=== PATIENT | male | born 1970 | race Native Hawaiian/Other Pacific Islander ===

== ENCOUNTER 2024-12-10 13:27 | Emergency (ER) | payer OTHER ==
[2024-12-10 14:43] LABS: Absolute Lymphocytes (CBC) 2.2 K/uL (0.7-4.9); Hematocrit 29.9 % (39.6-49.0); Hemoglobin 9.9 g/dL (13.6-17.9); MCH 25.7 pg (27.0-35.0); MCHC 33.2 g/dL (32.0-36.0); MCV 77.6 fL (80-100); MPV 8.4 fL (7.6-11.3); Nucleated RBC Absolute Count 0.0 (0-0); Nucleated Red Blood Cells % 0.0 % (0-0); RBC Red Blood Cell Count 3.86 M/uL (4.33-5.43); White Blood Count 7.50 thou/uL (4.3-10.9)
[2024-12-10 14:53] LABS: PT Prothrombin Time 12.4 SECONDS (10-13.0); PTT, Activated Partial Thromb 31.2 SECONDS (27.2-37.4); Protime INR 1.1
[2024-12-10 15:04] LABS: Albumin 2.5 g/dL (3.4-5.0); Albumin/Globulin Ratio 0.5 (1.1-1.8); Alkaline Phosphatase 91 U/L (45-117); Anion Gap 7.5 mEq/L (5.0-15.0); BUN Blood Urea Nitrogen 30 mg/dL (7-18); Globulin 5.3 g/dL (2.3-3.5); Potassium 4.5 mEq/L (3.5-5.1)
[2024-12-10 15:05] LABS: ALT/SGPT < 14 U/L (16-61); AST/SGOT < 10 U/L (15-37)
[2024-12-10 15:06] LABS: Glucose Level 488 mg/dL (74-106)
--- NOTE | 2024-12-10 15:14 | RAD REPORT ---
EXAM: Foot Left 3 View HISTORY: PAIN COMPARISON: None FINDINGS: Bones: No acute fracture identified. Alignment:No significant malalignment. Degenerative changes:Plantar and dorsal aspect calcaneal spur. Degenerative changes are present at th e first MTP joint. Plantar and dorsal aspect calcaneal spurs. Hindfoot degenerative changes. Other: n/a IMPRESSION: No acute osseous abnormality.
[2024-12-10] MEDS ORDERED: HYDROCODONE/APAP 5/325 MG TAB ONE (15:23)
[2024-12-10] MEDS ORDERED: NA CHLORIDE 0.9% 1,000 ML ONE (15:24)
[2024-12-10] MEDS ORDERED: INSULIN REGULAR (HUMAN) 100 UNIT/ML ONE (15:24)
--- NOTE | 2024-12-10 16:28 | EDPHYS ---
Physician Documentation [facility] Name: Hector Pal Age: 54 yrs Sex: Male : 1970 Arrival Date: 12/10/2024 Time: 13:27 Bed 14 Private MD: ED Physician Gabby Pollard HPI: 12/10 16:35 This 54 yrs old Male presents to ER via EMS with complaints of Wound Recheck. kb 16:35 Pt is a 54 year old male who presents for generalized malaise for several weeks. States kb he also has a wound on this foot that has been there for about a year that he is concerned is infected. States he is staying at the [facility] and they won't let him be there during the day so he is having to walk on his foot so it isn't healing. Denies fever. . 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 - Infectious Disease History:: Denies. - Social history:: Smoking status: Patient reports the use of cigarette tobacco products, smokes one-half pack cigarettes per day, Reported history of juuling and/or vaping. ROS: 16:31 Constitutional: As per HPI kb Exam: 16:31 Constitutional: This is a well developed, well nourished patient who is awake, alert, kb and in no acute distress. Head/Face: Normocephalic, atraumatic. ENT: Moist Mucous membranes Cardiovascular: Regular rate Respiratory: Respirations even and unlabored. No increased work of breathing. Talking in full sentences Neuro: Awake and alert, GCS 15, oriented to person, place, time, and situation. 16:31 Musculoskeletal/extremity: right bka. 16:31 Skin: open wound to bottom of left foot without erythema, drainage. Vital Signs: 13:43 BP 178 / 100; Pulse 98; Resp 16; Temp 97.5(O); Pulse Ox 100% on R/A; Weight 74.84 kg; ss Height 5 ft. 10 in. ; Pain 8/10; 14:30 BP 179 / 105; Pulse 95; Resp 18; Pulse Ox 100% ; rg5 15:20 BP 162 / 100; Pulse 93; Resp 18; Pulse Ox 100% ; rg5 16:30 BP 145 / 88; Pulse 89; Resp 18; Pulse Ox 100% ; rg5 13:43 Body Mass Index 23.67 (74.84 kg, 177.8 cm) ss 13:43 Pain Scale: Adult ss MDM: 13:45 Medical Screening Exam initiated kb 16:33 Differential diagnosis: cellulitis, infected wound, osteomyelitis, hyperglycemia, dka. kb Data reviewed: vital signs, nurses notes. Consideration of Admission/Observation Escalation of care including admission/observation considered. admission considered but wbc and lactate wnl, kidney function similar to previous, not in dka, BGL improved after treatment. Pt states he found out he got approved for medical care while here and will establish primary care tomorrow. . Historians other than the Patient: EMS: [facility]. Care significantly affected by the following Social Determinants of Health: Poor access to transportation, Inadequate housing. Counseling: I had a detailed discussion with the patient and/or guardian regarding the historical points, exam findings, and any diagnostic results supporting the discharge/admit diagnosis, lab results, radiology results, the need for outpatient follow up, a family practitioner, to return to the emergency department if symptoms worsen or persist or if there are any questions or concerns that arise at home. 12/10 13:51 Order name: Blood Culture Adult (2) kb 12/10 13:51 Order name: CBC with Diff; Complete Time: 15:00 kb 12/10 13:51 Order name: CMP; Complete Time: 15:07 kb 12/10 13:51 Order name: Lactate w/ 2H reflex if indic.; Complete Time: 15:04 kb 12/10 13:51 Order name: Protime (+inr); Complete Time: 14:53 kb 12/10 13:51 Order name: Ptt, Activated; Complete Time: 14:53 kb 12/10 13:51 Order name: CPK; Complete Time: 15:07 kb 12/10 14:08 Order name: Glucose, Ancillary Testing; Complete Time: 14:09 EDMS 12/10 16:22 Order name: Glucose, Ancillary Testing; Complete Time: 16:24 EDMS 12/10 13:51 Order name: Foot Left 3 View XRAY; Complete Time: 15:18 kb 12/10 13:51 Order name: Accucheck; Complete Time: 14:27 kb 12/10 13:51 Order name: Cardiac monitoring; Complete Time: 14:28 kb 12/10 13:51 Order name: IV Saline Lock - Large Bore; Complete Time: 14:27 kb 12/10 13:51 Order name: Labs collected and sent; Complete Time: 14:27 kb 12/10 13:51 Order name: O2 Per Protocol; Complete Time: 14:27 kb 12/10 13:51 Order name: O2 Sat Monitoring; Complete Time: 14:27 kb 12/10 13:51 Order name: Vital Signs; Complete Time: 14:27 kb 12/10 16:05 Order name: Blood Glucose Level; Complete Time: 16:14 kb Administered Medications: 15:31 Drug: NS 0.9% IV 1000 ml IV at 1000 ml once; to be given as a bolus over 60 minutes rg5 Route: IV; Rate: 1000 ml; Site: right forearm; 16:43 Follow up: IV Status: Completed infusion; IV Intake: 1000ml rg5 15:31 Drug: HYDROcodone-acetaminophen PO 5 mg-325 mg 1 tabs PO once Route: PO; rg5 16:05 Follow up: Response: No adverse reaction; Pain is decreased rg5 15:32 Drug: Insulin Regular Human IVP 10 units IVP once {Co-Signature: af3 (Carmel Robin RN).} rg5 Route: IVP; Site: right forearm; 16:05 Follow up: Response: No adverse reaction rg5 Disposition Summary: 12/10/24 16:27 Discharge Ordered Notes: Location: Home kb Condition: Stable kb Diagnosis - Hyperglycemia, unspecified kb Followup: kb - With: Emergency Department - When: As needed - Reason: Worsening of condition Followup: kb - With: Private Physician - When: 2 - 3 days - Reason: Recheck today's complaints, Continuance of care, Re-evaluation by your physician Discharge Instructions: - Discharge Summary Sheet kb - Hyperglycemia, [id number] kb Forms: - Medication Reconciliation Form kb - Antibiotic Education kb - Prescription Opioid Use kb - Patient Portal Instructions kb - Leadership Thank You Letter kb Signatures: Dispatcher [employer] Fannie Prajapati FNP-C FNP-Lisseth Segovia RN RN Azael Gomez RN RN rg5 Carmel Robin RN af3 Corrections: (The following items were deleted from the chart) 13: 13:52 BLOOD CULTURE*+BA.LAB.BRZ ordered. EDMS EDMS 13: 13:52 CBC+H.LAB.BRZ ordered. EDMS EDMS 13: 13:52 COMPREHENSIVE METABOLIC PANEL+C.LAB.BRZ ordered. EDMS EDMS 13: 13:52 LACTATE+C.LAB.BRZ ordered. EDMS EDMS : 13:52 PROTIME (+INR)+COAG.LAB.BRZ ordered. EDMS EDMS : 13:52 PTT, ACTIVATED+COAG.LAB.BRZ ordered. EDMS EDMS 13: 13:52 CREATINE PHOSPHOKINASE+C.LAB.BRZ ordered. EDMS EDMS 13: 13:52 Foot Left 3 View+RAD.RAD.BRZ ordered. EDMS EDMS
--- NOTE | 2024-12-10 16:28 | ER ---
Nurse's Notes [facility] Name: Hector Pal Age: 54 yrs Sex: Male : 1970 Arrival Date: 12/10/2024 Time: 13:27 Bed 14 Private MD: Diagnosis: Hyperglycemia, unspecified Presentation: 12/10 13:43 Chief complaint: Patient states: fatigue and not feeling well x 3 weeks. Discoloration ss noticed to R stump and L foot x 1 week. Pt reports he is diabetic and hx of HTN, but out of medication x 1 month. Pt states he is homeless, and cannot afford his prescriptions. Coronavirus screen: Client denies travel out of the [place] in the last 14 days. Ebola Screen: Patient denies exposure to infectious person. Patient denies travel to an Ebola-affected area in the 21 days before illness onset. Initial Sepsis Screen: Does the patient meet any 2 criteria? No. Patient's initial sepsis screen is negative. Does the patient have a suspected source of infection? No. Patient's initial sepsis screen is negative. Risk Assessment: Do you want to hurt yourself or someone else? Patient reports no desire to harm self or others. Onset of symptoms is unknown. 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 - Infectious Disease History:: Denies. - Social history:: Smoking status: Patient reports the use of cigarette tobacco products, smokes one-half pack cigarettes per day, Reported history of juuling and/or vaping. Screenin:00 [facility] ED Fall Risk Assessment (Adult) History of falling in the last 3 months, rg5 including since admission No falls in past 3 months (0 pts) Confusion or Disorientation No (0 pts) Intoxicated or Sedated No (0 pts) Impaired Gait Yes (1 pt) Mobility Assist Device Used Yes (1 pt) Altered Elimination No (0 pt) Score/Fall Risk Level 0 - 2 = Low Risk Oriented to surroundings, Maintained a safe environment, Hourly rounding (assess needs \T\ fall precautionary measures) done. Abuse screen: Denies threats or abuse. Nutritional screening: No deficits noted. Tuberculosis screening: No symptoms or risk factors identified. Assessment: 14:00 General: Appears in no apparent distress. comfortable, Behavior is calm, cooperative, rg5 appropriate for age. 14:00 Pain: Complains of pain in all over the body Quality of pain is described as aching. rg5 Neuro: Level of Consciousness is awake, alert, obeys commands, Oriented to person, place, time, situation. Cardiovascular: Denies chest pain. Respiratory: Airway is patent Trachea midline Respiratory effort is even, unlabored. GI: Abdomen is round non-distended. : No signs and/or symptoms were reported regarding the genitourinary system. EENT: No signs and/or symptoms were reported regarding the EENT system. Derm: Skin is intact, Skin is normal, Skin temperature is warm. Musculoskeletal: Amputation of right leg. Circulation, motion, and sensation intact. Range of motion: limited in right leg. 15:06 Reassessment: TAMAR Greco notified of critical lab value. Glucose 488. 15:20 Reassessment: Patient and/or family updated on plan of care and expected duration. Pain rg5 level reassessed. Patient is alert, oriented x 3, equal unlabored respirations, skin warm/dry/pink. 16:04 Reassessment: No changes from previously documented assessment. Patient and/or family rg5 updated on plan of care and expected duration. Pain level reassessed. Patient is alert, oriented x 3, equal unlabored respirations, skin warm/dry/pink. Vital Signs: 13:43 BP 178 / 100; Pulse 98; Resp 16; Temp 97.5(O); Pulse Ox 100% on R/A; Weight 74.84 kg; Height 5 ft. 10 in. ; Pain 8/10; 14:30 BP 179 / 105; Pulse 95; Resp 18; Pulse Ox 100% ; rg5 15:20 BP 162 / 100; Pulse 93; Resp 18; Pulse Ox 100% ; rg5 16:30 BP 145 / 88; Pulse 89; Resp 18; Pulse Ox 100% ; rg5 13:43 Body Mass Index 23.67 (74.84 kg, 177.8 cm) 13:43 Pain Scale: Adult ED Course: 13:43 Patient arrived in ED. ss 13:45 Fannie Jordan [facility]-C [facility] kb 13:45 Gabby Pollard MD is Attending Physician. kb 13:46 Azael Gomez, MIS is Primary Nurse. rg5 13:46 Triage completed. ss 13:46 Arm band placed on right wrist. ss 14:00 Patient has correct armband on for positive identification. Bed in low position. Call rg5 light in reach. Side rails up X 1. Door closed. Noise minimized. Warm blanket given. 14:00 No provider procedures requiring assistance completed. Inserted saline lock: 20 gauge rg5 in right antecubital area, using aseptic technique. Patient maintains SpO2 saturation greater than 95% on room air. 15:04 Foot Left 3 View XRAY In Process Unspecified. EDMS 16:44 Provided Education on: post er care. rg5 16:44 IV discontinued, bleeding controlled, No redness/swelling at site. Pressure dressing rg5 applied. Administered Medications: 15:31 Drug: NS 0.9% IV 1000 ml IV at 1000 ml once; to be given as a bolus over 60 minutes rg5 Route: IV; Rate: 1000 ml; Site: right forearm; 16:43 Follow up: IV Status: Completed infusion; IV Intake: 1000ml rg5 15:31 Drug: HYDROcodone-acetaminophen PO 5 mg-325 mg 1 tabs PO once Route: PO; rg5 16:05 Follow up: Response: No adverse reaction; Pain is decreased rg5 15:32 Drug: Insulin Regular Human IVP 10 units IVP once {Co-Signature: af3 (Carmel Robin RN).} rg5 Route: IVP; Site: right forearm; 16:05 Follow up: Response: No adverse reaction rg5 Medication: 15:06 VIS not applicable for this client. ss Intake: 16:43 IV: 1000ml; Total: 1000ml. rg5 Outcome: 16:27 Discharge ordered by . kb 16:44 Discharged to home ambulatory, rg5 16:44 Condition: stable 16:44 Discharge instructions given to patient, Instructed on discharge instructions, Demonstrated understanding of instructions, 16:45 Patient left the ED. rg5 Signatures: Dispatcher [employer] EDHI Fannie Jordan FNP-C FNP-Ckb Blanchard, Shelby, RN RN ss Azael Gomez, RN RN rg5 Sharda, Carmel RN af3
[2024-12-10 17:40] VITALS: TEMP 97.5; O2SAT 100
[2024-12-10 17:45] VITALS: BP 145/88
== END 2024-12-10 16:45 | disposition home or self-care (01) ==
LOC: ER 13:27
DX: E11.65 Type 2 diabetes mellitus with hyperglycemia (principal); S91.302A Unspecified open wound, left foot, initial encounter; I10 Essential (primary) hypertension; F17.210 Nicotine dependence, cigarettes, uncomplicated; Z89.511 Acquired absence of right leg below knee
CPT/HCPCS: 96361; 87040 ×2; 85025; 36415; 82550; 87205 ×2; 85610; 82947 ×2; 83605; 85730; 80053; 73630; 96374; 99284; J1815; J7030

== ENCOUNTER 2024-12-13 11:32 | Emergency (ER) | payer OTHER ==
--- OUTSIDE RECORDS SUMMARY | 2024-12-13 11:35 | XMS REPORT | Continuity of Care Document ---
Author Name Unknown Address [address] [place] [id number] [facility] Address [address] [place] [address] [address] [place] [address] Care Team Providers Care Loan Officer Name Role Phone Unavailable Unavailable Unavailable Encounters Start Date/Time End Date/Time Encounter Type Admission Type Attending Clinicians Care Facility Care Department Encounter ID Source 2024-12-12 10:25:20 2024-12-12 10:25:20 Outpatient [facility] [id number] Miguel Lyon
[2024-12-13] MEDS ORDERED: LIDOCAINE 1% 20 ML MDV ONE (12:00)
--- NOTE | 2024-12-13 13:04 | EDPHYS ---
Physician Documentation [facility] Name: Hector Pal Age: 54 yrs Sex: Male : 1970 Arrival Date: 12/13/2024 Time: 11:32 Bed 7 Private MD: ED Physician Brendon Perea HPI: 12/13 13:28 This 54 yrs old Male presents to ER via Wheelchair with complaints of Abscess. [facility] 13:28 54-year-old male with a past medical history of hypertension and diabetes presents to [facility] the ER for an abscess to the left glute. He reports that he has had abscesses in the past and that sitting in his wheelchair has caused this abscess to worsen. Reports symptoms for the past 3 days. Denies fever, vomiting, rectal pain, or any other symptoms.. Historical: - Allergies: 13:28 antibiotics; iw 13:28 PENICILLINS; iw - PMHx: 13:28 diabetes mellitus; diabetes mellitus; Hypertensive disorder; iw - PSHx: 13:28 R BKA; Amputated below knee; R shoulder; iw ROS: 13:28 Constitutional: Per HPI [facility] Exam: 13:28 Constitutional: This is a well developed, well nourished patient who is awake, alert, [facility] and in no acute distress. Head/Face: Normocephalic, atraumatic. Eyes: Pupils equal round and reactive to light, extra-ocular motions intact. Lids and lashes normal. Conjunctiva and sclera are non-icteric and not injected. Cornea within normal limits. Periorbital areas with no swelling, redness, or edema. Cardiovascular: Regular rate and rhythm with a normal S1 and S2. No gallops, murmurs, or rubs. Normal PMI, no JVD. No pulse deficits. Respiratory: Lungs have equal breath sounds bilaterally, clear to auscultation and percussion. No rales, rhonchi or wheezes noted. No increased work of breathing, no retractions or nasal flaring. Abdomen/GI: Soft, non-tender, with normal bowel sounds. No distension or tympany. No guarding or rebound. No evidence of tenderness throughout. MS/ Extremity: Pulses equal, no cyanosis. Neurovascular intact. Full, normal range of motion. Neuro: Awake and alert, GCS 15, oriented to person, place, time, and situation. 13:28 Skin: abscess, that is small, approximately 2 cm(s), of the Left glute, with fluctuance, that is mild, with induration, Procedures: 13:10 I \T\ D: Incision and drainage was performed for an abscess of the left sacrum Prepped [facility] with Betadine, Anesthetized with 7 ml's 1% Lidocaine. Incised with #11 blade. Drained small amount purulent fluid. bloody fluid. Packed with sterile gauze, Dressing: sterile 4x4 gauze, the patient tolerated the procedure well. MDM: 11:40 Medical Screening Exam initiated mckenna 13:30 Differential diagnosis: abscess, cellulitis, insect bite. Data reviewed: vital signs, [facility] nurses notes. I considered the following discharge prescriptions or medication management in the emergency department Medications were administered in the Emergency Department. See MAR. Care significantly affected by the following chronic conditions: Diabetes, Hypertension. Care significantly affected by the following Social Determinants of Health: Inadequate housing. Counseling: I had a detailed discussion with the patient and/or guardian regarding the historical points, exam findings, and any diagnostic results supporting the discharge/admit diagnosis, to return to the emergency department if symptoms worsen or persist or if there are any questions or concerns that arise at home. Admission orders: after a detailed discussion of the patient's condition and case, the admit orders are written by me. Admission orders: after a detailed discussion of the patient's condition and case, the admit orders are written by me. ED course: Inform the patient that there was only a very small area of fluctuance with a larger area of induration, meaning that the abscess may continue to drain or need an additional I\T\D. Advised to start antibiotics and return to the ER with any fever or continued swelling.. 12/13 11:57 Order name: Incision \T\ Drainage Setup; Complete Time: 12:05 jh7 12/13 13:02 Order name: Wound dressing; Complete Time: 13:11 7 Administered Medications: No medications were administered Disposition Summary: 12/13/24 13:03 Discharge Ordered Notes: Location: [place] [id number] Problem: new [facility] Symptoms: have improved [facility] Condition: Stable [facility] Diagnosis - Gluteal abscess [facility] Followup: [facility] - With: Private Physician - When: 2 - 3 days - Reason: Recheck today's complaints Discharge Instructions: - Discharge Summary Sheet [facility] - Skin Abscess [facility] Forms: - Medication Reconciliation Form 7 - Antibiotic Education 7 - Patient Portal Instructions [facility] - Leadership Thank You Letter [facility] Prescriptions: - mupirocin 2 % Topical ointment - apply 1 application TOPICAL route 3 times per day for 7 days; 22 gram; Refills: [facility] 0, Product Selection Permitted - Naprosyn 500 mg Oral Tablet - take 1 tablet ORAL route 2 times per day take with food; 30 tablet; Refills: 0, [facility] Product Selection Permitted - Bactrim DS 800-160 mg Oral Tablet - take 1 tablet ORAL route every 12 hours for 10 days; 20 tablet; Refills: 0, [facility] Product Selection Permitted Addendum: 12/18/2024 06:57 Co-signature as Attending Physician, Brendon Perea MD I agree with the assessment and c galindo plan of care. Signatures: Brendon Perea MD MD cha Williams, Irene, RN RN Rosana Cook, PALLETIZER OPERATOR [place] [address]
--- NOTE | 2024-12-13 13:30 | ER ---
Nurse's Notes [facility] Name: Hector Pal Age: 54 yrs Sex: Male : 1970 Arrival Date: 12/13/2024 Time: 11:32 Bed 7 Private MD: Diagnosis: Gluteal abscess Presentation: 12/13 11:47 Chief complaint: Patient states: abscess to buttock area. Coronavirus screen: At this iw time, the client does not indicate any symptoms associated with coronavirus-19. Ebola Screen: No symptoms or risks identified at this time. Initial Sepsis Screen: Does the patient meet any 2 criteria? No. Patient's initial sepsis screen is negative. Does the patient have a suspected source of infection? No. Patient's initial sepsis screen is negative. Risk Assessment: Do you want to hurt yourself or someone else? Patient reports no desire to harm self or others. 11:47 Method Of Arrival: Wheelchair iw 11:47 Acuity: CESAR 4 iw 13:29 Onset of symptoms was December 13, 2024. iw Historical: - Allergies: 13:28 antibiotics; iw 13:28 PENICILLINS; iw - PMHx: 13:28 diabetes mellitus; diabetes mellitus; Hypertensive disorder; iw - PSHx: 13:28 R BKA; Amputated below knee; R shoulder; iw Screenin:28 [facility] ED Fall Risk Assessment (Adult) History of falling in the last 3 months, iw including since admission No falls in past 3 months (0 pts) Confusion or Disorientation No (0 pts) Intoxicated or Sedated No (0 pts) Impaired Gait No (0 pts) Mobility Assist Device Used No (0 pt) Altered Elimination No (0 pt) Score/Fall Risk Level 0 - 2 = Low Risk Oriented to surroundings, Maintained a safe environment. Abuse screen: Denies threats or abuse. Denies injuries from another. Nutritional screening: No deficits noted. Tuberculosis screening: No symptoms or risk factors identified. Assessment: 11:47 General: Appears in no apparent distress. Behavior is calm, cooperative. Pain: iw Complains of pain in buttocks. Neuro: Level of Consciousness is awake, alert, obeys commands, Oriented to person, place, time, situation, Moves all extremities. Cardiovascular: Patient's skin is warm and dry. Respiratory: Respiratory effort is even, unlabored, Respiratory pattern is regular, symmetrical. Derm: Skin is intact. ED Course: 11:35 Patient arrived in ED. al6 11:40 Brendon Perea MD is Attending Physician. mckenna 11:40 Rosana Epps FNP [facility]. jh7 11:58 Faraz Velázquez, RN is Primary Nurse. ar8 13:28 Triage completed. iw 13:29 Arm band placed on. iw Administered Medications: No medications were administered Medication: 11:47 VIS not applicable for this client. iw Outcome: 13:03 Discharge ordered by . 7 13:29 Patient left the ED. iw Signatures: Brendon Perea MD MD cha Williams, Irene, RN RN iw Rosana Epps FNP FNP Heather Alfaro al6 Faraz Velázquez, RN RN ar8
== END 2024-12-13 13:29 | disposition home or self-care (01) ==
LOC: ER 11:32
PROC: 0H98XZZ Drainage of Buttock Skin, External Approach (ICD-10-PCS; principal; 2024-12-13)
DX: L02.31 Cutaneous abscess of buttock (principal)
CPT/HCPCS: 99281; 10060; J2003

== ENCOUNTER 2024-12-30 08:06 | Emergency (ER) | payer OTHER ==
[2024-12-30] MEDS ORDERED: GLUCAGON 1 MG/VIAL ONE (08:37)
[2024-12-30] MEDS ORDERED: WATER FOR INJ,STERILE 0 ML ONE (08:37)
[2024-12-30] MEDS ORDERED: D50W 25 GM/50 ML SYRINGE IV ONE (08:37)
[2024-12-30 08:48] LABS: Absolute Lymphocytes (CBC) 2.1 K/uL (0.7-4.9); Hematocrit 33.4 % (39.6-49.0); Hemoglobin 11.1 g/dL (13.6-17.9); MCH 26.6 pg (27.0-35.0); MCHC 33.2 g/dL (32.0-36.0); MCV 80.1 fL (80-100); MPV 6.9 fL (7.6-11.3); Nucleated RBC Absolute Count 0.0 (0-0); Nucleated Red Blood Cells % 0.0 % (0-0); RBC Red Blood Cell Count 4.17 M/uL (4.33-5.43); White Blood Count 8.20 thou/uL (4.3-10.9)
[2024-12-30 09:02] LABS: Anion Gap 9.0 mEq/L (5.0-15.0); BUN Blood Urea Nitrogen 36.0 mg/dL (7-18); Glucose Level 93.0 mg/dL (74-106); Potassium 4.0 mEq/L (3.5-5.1)
[2024-12-30] MEDS ORDERED: NA CHLORIDE 0.9% 500 ML ONE (09:10)
[2024-12-30] MEDS ORDERED: HYDROCODONE/APAP 10/325 TAB ONE (09:33)
--- NOTE | 2024-12-30 11:54 | ER ---
Nurse's Notes [facility] Name: Hector Pal Age: 54 yrs Sex: Male : 1970 Arrival Date: 12/30/2024 Time: 08:06 Bed 3 Private MD: Diagnosis: Hypoglycemia, unspecified Presentation: 12/30 08:06 Chief complaint: EMS states: Per EMS, [facility] called 911 because patient was ar8 unresponsive. EMS states initial BG was 39 they medicated with Glucagon IM, BG 41 FINANCIAL REPORTING ADVISOR to ED. Patient responsive to verbal stimuli, able to answer questions. 08:06 Method Of Arrival: EMS: [facility] ar8 08:06 Coronavirus screen: At this time, the client does not indicate any symptoms associated ar8 with coronavirus-19. Ebola Screen: No symptoms or risks identified at this time. Initial Sepsis Screen: Does the patient meet any 2 criteria? No. Patient's initial sepsis screen is negative. Does the patient have a suspected source of infection? No. Patient's initial sepsis screen is negative. Risk Assessment: Do you want to hurt yourself or someone else? Patient reports no desire to harm self or others. Onset of symptoms was December 30, 2024. 08:06 Acuity: CESAR 2 ar8 Triage Assessment: 08:10 General: Appears in no apparent distress. Behavior is drowsy. Pain: Denies pain. Neuro: ar8 Level of Consciousness is obeys commands, lethargic, Oriented to person, place, situation. Cardiovascular: Rhythm is sinus rhythm. Respiratory: Airway is patent Respiratory effort is even, unlabored, Respiratory pattern is regular, symmetrical. GI: No signs and/or symptoms were reported involving the gastrointestinal system. : No signs and/or symptoms were reported regarding the genitourinary system. Derm: Skin is clammy, Skin is pale, Skin temperature is cool Wound noted heel of left foot and left fifth toe. Historical: - Allergies: 08:27 antibiotics; ar8 08:27 PENICILLINS; ar8 08:27 unknown antibiotic; ar8 08:27 Vancomycin; ar8 - PMHx: 08:27 diabetes mellitus; Hypertensive disorder; ar8 - PSHx: 08:27 Amputated below knee; R BKA; R shoulder; ar8 - Immunization history:: Adult Immunizations not up to date. - Infectious Disease History:: Denies. - Family history:: not pertinent. - Social history:: Smoking status: Patient reports the use of cigarette tobacco products. - Hospitalizations: : No recent hospitalization is reported. Screenin:10 [facility] Fall Risk Assessment (Adult) History of falling in the last 3 months, ar8 including since admission No falls in past 3 months (0 pts) Confusion or Disorientation Yes (5 pts) Intoxicated or Sedated No (0 pts) Impaired Gait No (0 pts) Mobility Assist Device Used No (0 pt) Altered Elimination No (0 pt) Score/Fall Risk Level 3 or more points = High Risk Oriented to surroundings, Maintained a safe environment. Nutritional screening: No deficits noted. Tuberculosis screening: No symptoms or risk factors identified. 08:10 Abuse screen: Denies threats or abuse. ar8 Assessment: 08:33 Reassessment: See triage assessment. ar8 08:49 Reassessment: Patient and/or family updated on plan of care and expected duration. Pain ar8 level reassessed. Patient is alert, oriented x 3, equal unlabored respirations, skin warm/dry/pink. Patient denies pain at this time. Patient states feeling better. Neuro: Level of Consciousness is awake, alert, obeys commands, Oriented to person, place, time, situation. Vital Signs: 08:06 BP 94 / 73; Pulse 82; Resp 16; Pulse Ox 100% on R/A; Weight 73.94 kg; Height 5 ft. 10 ar8 in. ; Pain 0/10; 09:30 BP 157 / 99; Pulse 75; Resp 18; Pulse Ox 100% on R/A; ar8 10:16 BP 159 / 87; Pulse 81; Resp 16; Pulse Ox 98% on R/A; ar8 11:00 BP 169 / 63; Pulse 81; Resp 19; Pulse Ox 98% on R/A; ar8 12:59 BP 166 / 102; Pulse 85; Resp 19; Pulse Ox 100% on R/A; ap3 14:00 BP 164 / 100; Pulse 90; Resp 18; Pulse Ox 100% on R/A; ar8 08:06 Body Mass Index 23.39 (73.94 kg, 177.8 cm) ar8 08:06 Pain Scale: Adult ar8 ED Course: 08:10 Arm band placed on right wrist. ar8 08:10 Bed in low position. Call light in reach. Side rails up X2. Provided Education on: plan ar8 of care. Client placed on continuous cardiac and pulse oximetry monitoring. NIBP monitoring applied. 08:10 No provider procedures requiring assistance completed. ar8 08:20 Patient arrived in ED. hb 08:20 Joe Davis MD is Attending Physician. rn 08:23 Faraz Velázquez RN is Primary Nurse. ar8 08:26 Triage completed. ar8 08:40 Inserted saline lock: 20 gauge in right upper arm, using aseptic technique. Blood ar8 collected. Flushed with 10 mL NS US guided IV inserted by charge nurse. 08:49 Diet: Patient given juice. Tolerated well. ar8 14:40 IV discontinued, intact, bleeding controlled, No redness/swelling at site. Pressure ar8 dressing applied. Administered Medications: 08:53 Not Given (Physician Discretion): d50w50 ml IVP once; (1 amp) ar8 08:53 Not Given (Physician Discretion): glucagon1 mg IVP once ar8 09:15 Drug: NS 0.9% IV 500 ml 500 ml IV at 1 bolus once; to be given as a bolus over 30 ar8 minutes Volume: 500 ml; Route: IV; Rate: 1 bolus; Site: right upper arm; 09:45 Follow up: Response: No adverse reaction; IV Status: Completed infusion; IV Intake: ar8 500ml 09:44 Drug: [place] PO 10 mg-325 mg 1 tabs PO once Route: PO; ar8 14:54 Follow up: Response: No adverse reaction; Pain is decreased ar8 Medication: 08:33 VIS not applicable for this client. ar8 Point of Care Testing: Blood Glucose: 08:39 Blood Glucose: 82 mg/dL; ar8 11:15 Blood Glucose: 180 mg/dL; ar8 Ranges: Intake: 09:45 IV: 500ml; Total: 500ml. ar8 Outcome: 11:54 Discharge ordered by . rn 14:40 Discharged to home via wheelchair, ar8 14:40 Condition: stable ar8 14:40 Discharge instructions given to patient, Instructed on discharge instructions, follow up and referral plans. Demonstrated understanding of instructions, follow-up care, 14:57 Patient left the ED. ar8 Signatures: Joe Davis MD MD rn Baxter, Heather, RN RN Geeta Conley RN RN ap3 Faraz Velázquez RN RN ar8 Corrections: (The following items were deleted from the chart) 08:35 00:00 [facility] Fall Risk Assessment (Adult) History of falling in the last 3 months, ar8 including since admission No falls in past 3 months (0 pts) Confusion or Disorientation Yes (5 pts) Intoxicated or Sedated No (0 pts) Impaired Gait No (0 pts) Mobility Assist Device Used No (0 pt) Altered Elimination No (0 pt) Score/Fall Risk Level 3 or more points = High Risk Oriented to surroundings, Maintained a safe environment, ar8 08:35 00:00 Abuse screen: Denies threats or abuse. ar8 ar8 :35 00:00 Nutritional screening: No deficits noted. ar8 ar8 :35 00:00 Tuberculosis screening: No symptoms or risk factors identified. ar8 ar8
--- NOTE | 2024-12-30 11:54 | EDPHYS ---
Physician Documentation [facility] Name: Hector Pal Age: 54 yrs Sex: Male : 1970 Arrival Date: 12/30/2024 Time: 08:06 Bed 3 Private MD: ED Physician Joe Davis HPI: 12/30 08:26 This 54 yrs old Male presents to ER via Unassigned with complaints of Low Blood Sugar. rn 08:26 Patient had [facility], they did bed checks this morning and noted he was difficult rn to arouse. They thought he was overdose, EMS reports glucose less than 40, given glucagon IM but no IV started or no other meds as was basic truck. Patient a little bit more alert but still slow to respond. Patient reports chronic pain to the left lower extremity but no new symptoms. Patient reports takes Lantus at night.. Historical: - Allergies: 08:27 antibiotics; ar8 08:27 PENICILLINS; ar8 08:27 unknown antibiotic; ar8 08:27 Vancomycin; ar8 - PMHx: 08:27 diabetes mellitus; Hypertensive disorder; ar8 - PSHx: 08:27 Amputated below knee; R BKA; R shoulder; ar8 - Immunization history:: Adult Immunizations not up to date. - Infectious Disease History:: Denies. - Family history:: not pertinent. - Social history:: Smoking status: Patient reports the use of cigarette tobacco products. - Hospitalizations: : No recent hospitalization is reported. ROS: 08:28 Constitutional: Negative for fever, chills, and weight loss, Cardiovascular: Negative rn for chest pain, palpitations, and edema, Respiratory: Negative for shortness of breath, cough, wheezing, and pleuritic chest pain, Abdomen/GI: Negative for abdominal pain, nausea, vomiting, diarrhea, and constipation, MS/Extremity: Negative for injury and deformity, Skin: Negative for injury, rash, and discoloration, Neuro: Negative for headache, numbness, tingling, and seizure, Exam: 08:28 Constitutional: Patient is disheveled, somnolent, but awakens to voice and tactile rn stimulation Cardiovascular: Regular rate and rhythm. No pulse deficits. Respiratory: No increased work of breathing, no retractions or nasal flaring. Abdomen/GI: Soft, non-tender MS/ Extremity: RLE prosthesis. Shallow ulceration heel of left foot, no erythema or purulence. Neuro: Somnolent, awakens to voice, moves all 4 ext. Vital Signs: 08:06 BP 94 / 73; Pulse 82; Resp 16; Pulse Ox 100% on R/A; Weight 73.94 kg; Height 5 ft. 10 ar8 in. ; Pain 0/10; 09:30 BP 157 / 99; Pulse 75; Resp 18; Pulse Ox 100% on R/A; ar8 10:16 BP 159 / 87; Pulse 81; Resp 16; Pulse Ox 98% on R/A; ar8 11:00 BP 169 / 63; Pulse 81; Resp 19; Pulse Ox 98% on R/A; ar8 12:59 BP 166 / 102; Pulse 85; Resp 19; Pulse Ox 100% on R/A; ap3 14:00 BP 164 / 100; Pulse 90; Resp 18; Pulse Ox 100% on R/A; ar8 08:06 Body Mass Index 23.39 (73.94 kg, 177.8 cm) ar8 08:06 Pain Scale: Adult ar8 MDM: 08:20 Medical Screening Exam initiated rn 08:54 ED course: Patient more alert, tolerating p.o. and eating food to raise glucose, doing rn well. 11:53 Differential diagnosis: hypoglycemic episode. Data reviewed: vital signs, nurses notes, furnace repairer test result(s), and as a result, I will discharge patient. Care significantly affected by the following chronic conditions: Diabetes. Counseling: I had a detailed discussion with the patient and/or guardian regarding the historical points, exam findings, and any diagnostic results supporting the discharge/admit diagnosis, lab results, the need for outpatient follow up, to return to the emergency department if symptoms worsen or persist or if there are any questions or concerns that arise at home. Response to treatment: the patient's symptoms have markedly improved after treatment, the patient's symptoms have resolved after treatment, the patient's condition has returned to base line, the patient is now symptom free, and as a result, I will discharge patient. ED course: Glucose up to 180, tolerating p.o., stable vital signs, patient requesting to be discharged. Has been observed for 4 hours, I believe safe to discharge at this point.. 12/30 08:21 Order name: CBC with Diff; Complete Time: :05 rn 12/30 08:21 Order name: Basic Metabolic Panel; Complete Time: 09:05 rn 12/30 08:53 Order name: Glucose, Ancillary Testing; Complete Time: 09:05 EDMS 12/30 11:25 Order name: Glucose, Ancillary Testing; Complete Time: 11:34 EDMS 12/30 08:21 Order name: IV Start; Complete Time: 08:54 rn 12/30 08:21 Order name: Glucose Level; Complete Time: 08:38 rn 12/30 08:21 Order name: Cardiac monitoring; Complete Time: 08:38 rn 12/30 08:21 Order name: O2 Sat Monitoring; Complete Time: 08:38 rn 12/30 08:21 Order name: PO challenge; Complete Time: 08:56 rn 12/30 10:46 Order name: Glucose Level; Complete Time: 11:25 rn Administered Medications: 08:53 Not Given (Physician Discretion): d50w50 ml IVP once; (1 amp) ar8 08:53 Not Given (Physician Discretion): glucagon1 mg IVP once ar8 09:15 Drug: NS 0.9% IV 500 ml 500 ml IV at 1 bolus once; to be given as a bolus over 30 ar8 minutes Volume: 500 ml; Route: IV; Rate: 1 bolus; Site: right upper arm; 09:45 Follow up: Response: No adverse reaction; IV Status: Completed infusion; IV Intake: ar8 500ml 09:44 Drug: [place] PO 10 mg-325 mg 1 tabs PO once Route: PO; ar8 14:54 Follow up: Response: No adverse reaction; Pain is decreased ar8 Point of Care Testing: Blood Glucose: 08:39 Blood Glucose: 82 mg/dL; ar8 11:15 Blood Glucose: 180 mg/dL; ar8 Ranges: Critical Glucose Levels:Adult <50 mg/dl or >400 mg/dl <40 mg/dl or >180 mg/dl Disposition Summary: 12/30/24 11:54 Discharge Ordered Notes: Location: Home rn Problem: new rn Symptoms: have improved rn Condition: Stable rn Diagnosis - Hypoglycemia, unspecified rn Followup: rn - With: Private Physician - When: As needed - Reason: Recheck today's complaints, Re-evaluation by your physician Discharge Instructions: - Discharge Summary Sheet rn - Hypoglycemia rn - Blood Glucose Monitoring, Adult rn Forms: - Medication Reconciliation Form rn - Antibiotic quality rn - Prescription Opioid Use rn - Patient Portal Instructions rn - Leadership Thank You Letter rn Signatures: Dispatcher [employer] Joe Shah MD MD rn Rodriguez, Andrea, RN RN ar8
[2024-12-30 15:50] VITALS: O2SAT 100
[2024-12-30 15:51] VITALS: BP 164/100
== END 2024-12-30 14:57 | disposition home or self-care (01) ==
LOC: ER 08:06
DX: E16.2 Hypoglycemia, unspecified (principal); F17.210 Nicotine dependence, cigarettes, uncomplicated; E11.9 Type 2 diabetes mellitus without complications; Z88.0 Allergy status to penicillin; Z88.1 Allergy status to other antibiotic agents
CPT/HCPCS: 85025; 80048; 36415; 82947 ×2; 99285; J7040; J1610

== ENCOUNTER 2024-12-31 07:35 | Emergency (ER) | payer OTHER ==
[~2024-12-31 07:35] MED LIST: D50W 25 GM/50 ML SYRINGE IV ONE
[2024-12-31] MEDS ORDERED: D50W 25 GM/50 ML SYRINGE IV ONE (07:40)
[2024-12-31 08:52] LABS: Absolute Lymphocytes (CBC) 2.6 K/uL (0.7-4.9); Hematocrit 31.3 % (39.6-49.0); Hemoglobin 10.5 g/dL (13.6-17.9); MCH 26.6 pg (27.0-35.0); MCHC 33.4 g/dL (32.0-36.0); MCV 79.6 fL (80-100); MPV 7.3 fL (7.6-11.3); Nucleated RBC Absolute Count 0.0 (0-0); Nucleated Red Blood Cells % 0.0 % (0-0); RBC Red Blood Cell Count 3.94 M/uL (4.33-5.43); White Blood Count 8.40 thou/uL (4.3-10.9)
[2024-12-31 09:06] LABS: PT Prothrombin Time 12.5 SECONDS (10-13.0); PTT, Activated Partial Thromb 39.5 SECONDS (27.2-37.4); Protime INR 1.11
[2024-12-31 09:19] LABS: AST/SGOT 18 U/L (15-37); Albumin 2.3 g/dL (3.4-5.0); Albumin/Globulin Ratio 0.4 (1.1-1.8); Alkaline Phosphatase 73 U/L (45-117); Anion Gap 9.0 mEq/L (5.0-15.0); BUN Blood Urea Nitrogen 37 mg/dL (7-18); Globulin 5.4 g/dL (2.3-3.5); Magnesium 2.4 mg/dL (1.6-2.4); Potassium 4.0 mEq/L (3.5-5.1); Troponin High Sensitivity 8.8 pg/mL (<58.9)
[2024-12-31 09:20] LABS: ALT/SGPT < 14 U/L (16-61); Bilirubin Indirect, Calculated 0.0 mg/dL (0.2-0.8)
[2024-12-31 09:22] LABS: Glucose Level 30 mg/dL (74-106)
--- NOTE | 2024-12-31 09:25 | RAD REPORT ---
EXAM: CT Head Brain Wo Cont HISTORY: ams COMPARISON: None TECHNIQUE: Multiple contiguous axial images were obtained for a CT of the brain without contrast. Sag ittal and coronal reformats were performed. One or more of the following dose reduction techniques were used: Automated exposure control, adjus tment of the mA and kV according to patient size, and iterative reconstruction. Unless otherwise specified, incidental findings do not require dedicated imaging follow-up. FINDINGS: No evidence of hydrocephalus, intracranial hemorrhage, or extra-axial fluid collection. Mild brain atrophy with mild periventricular and deep white matter chronic microvascular ischemic ch anges present. The calvarium is intact. The visualized paranasal sinuses and mastoid air cells are essentially clear . IMPRESSION: No evidence of acute intracranial abnormality.
--- NOTE | 2024-12-31 09:35 | RAD REPORT ---
EXAMINATION: ONE VIEW CHEST XR CLINICAL INDICATION: Male, 54 years old.,ams, hypglycemi TECHNIQUE: Frontal chest projection is submitted. Examination is limited by patient positioning and t echnique. COMPARISON: 11/17/2024 FINDINGS: The lungs are well inflated and clear. No pneumothorax or sizable effusion. The heart is normal in s ize. Appearance of dextrocardia again seen. Mediastinal contours are otherwise unremarkable. IMPRESSION: No acute intrathoracic abnormalities.
--- NOTE | 2024-12-31 10:15 | EDPHYS ---
Physician Documentation [facility] Name: Hector Pal Age: 54 yrs Sex: Male : 1970 Arrival Date: 12/31/2024 Time: 07:35 Bed 2 Private MD: ED Physician Hubert Thibodeaux HPI: 12/31 19:24 This 54 yrs old Male presents to ER via EMS with complaints of Low Blood Sugar. ms3 19:24 54-year-old male with past medical history of diabetes, hypertension presents to the [facility] emergency department via [facility] for hypoglycemia. On EMS arrival patient's blood glucose level was 14. They administered glucagon with improvement of patient's blood glucose level 31.. Historical: - Allergies: 07:40 antibiotics; zm 07:40 PENICILLINS; zm 07:40 Vancomycin; zm 07:40 unknown antibiotic; zm - PMHx: 07:40 diabetes mellitus; Hypertensive disorder; zm - PSHx: 07:40 Amputated below knee; R shoulder; R BKA; zm - Immunization history:: Adult Immunizations unknown. - Infectious Disease History:: Denies. - Social history:: Smoking status: unknown. ROS: 19:24 Unable to obtain ROS due to altered mental status, wv3 Exam: 19:36 Head/Face: Normocephalic, atraumatic. Cardiovascular: Regular rate and rhythm with a ms3 normal S1 and S2. No gallops, murmurs, or rubs. Normal PMI, no JVD. No pulse deficits. Respiratory: Lungs have equal breath sounds bilaterally, clear to auscultation and percussion. No rales, rhonchi or wheezes noted. No increased work of breathing, no retractions or nasal flaring. Abdomen/GI: Soft, non-tender, with normal bowel sounds. No distension or tympany. No guarding or rebound. No evidence of tenderness throughout. 19:36 Neuro: Patient unresponsive on arrival., Vital Signs: 07:40 BP 143 / 92; Pulse 89; Resp 24; Temp 97.3; Pulse Ox 94% on R/A; zm 08:30 BP 139 / 84; Pulse 79; Resp 19; Temp 97.7; Pulse Ox 98% on R/A; Pain 0/10; zm 10:01 BP 136 / 82; Pulse 76; Resp 17; Temp 97.8; Pulse Ox 97% on R/A; Pain 0/10; zm 08:30 Pain Scale: Adult zm 10:01 Pain Scale: Adult zm Pipe Coma Score: 07:40 Eye Response: none(1). Motor Response: none(1). Verbal Response: none(1). Total: 3. cc6 10:01 Eye Response: spontaneous(4). Motor Response: obeys commands(6). Verbal Response: zm oriented(5). Total: 15. MDM: 08:00 Medical Screening Exam initiated ms3 09:24 ED course: Discussed admission with patient and patient refuses admission at this time. ms3 . 10:11 ED course: . ms3 10:13 ED course: Patient has decided to refuse hospital admission. At this time, I ms3 reevaluated the patient and discussed the following: a. Capacity: The patient has the capacity to communicate, understand information, and logically process the decision making process. b. Communication of risks: At bedside, I discussed potential risks, outcomes, and alternative approaches in a patientcentered manner. The patient was informed of the specific risks of hypoglycemia, including worsening condition and . The patient understands that they are welcome to return at any time to complete the workup. Patient is discharged from my care with informed refusal.. 19:36 Differential diagnosis: hyperglycemia, Renal impairment versus cerebral edema. Data ms3 reviewed: vital signs, nurses notes, lab test result(s), radiologic studies, and as a result, I will discharge patient. I considered the following discharge prescriptions or medication management in the emergency department Medications were administered in the Emergency Department. See MAR. Historians other than the Patient: EMS: [facility]. Counseling: I had a detailed discussion with the patient and/or guardian regarding the historical points, exam findings, and any diagnostic results supporting the discharge/admit diagnosis, lab results, radiology results, the need for outpatient follow up, to return to the emergency department if symptoms worsen or persist or if there are any questions or concerns that arise at home. Refusal of service: The patient/guardian displays adequate decision making capability and despite a detailed discussion of alternatives, benefits, risks, and consequences refuses: Admission to the hospital for further work-up and treatment. 12/31 08:21 Order name: Basic Metabolic Panel; Complete Time: 09:37 ms3 12/31 08:21 Order name: CBC with Diff; Complete Time: 09:37 ms3 12/31 08:21 Order name: Magnesium; Complete Time: 09:37 ms3 12/31 08:21 Order name: Troponin HS; Complete Time: 09:37 ms3 12/31 08:21 Order name: Acetaminophen; Complete Time: 09:37 ms3 12/31 08:21 Order name: Ethanol; Complete Time: 09:37 ms3 12/31 08:21 Order name: Protime (+inr); Complete Time: 09:37 ms3 12/31 08:21 Order name: Ptt, Activated; Complete Time: 09:37 ms3 12/31 08:21 Order name: Salicylate; Complete Time: 09:37 ms3 12/31 08:52 Order name: Liver (Hepatic) Function; Complete Time: 09:37 EDMS 12/31 08:21 Order name: XRAY Chest (1 view); Complete Time: 09:37 ms3 12/31 08:31 Order name: CT Head Brain wo Cont; Complete Time: 09:37 ms3 12/31 08:21 Order name: Cardiac monitoring; Complete Time: 09:53 ms3 12/31 08:21 Order name: IV Saline Lock; Complete Time: 09:52 ms3 12/31 08:21 Order name: Labs collected and sent; Complete Time: 09:52 ms3 12/31 08:21 Order name: O2 Per Protocol; Complete Time: 09:53 ms3 12/31 08:21 Order name: O2 Sat Monitoring; Complete Time: 09:53 ms3 12/31 08:21 Order name: Suicide Screening ([place]); Complete Time: 10:00 ms3 Administered Medications: 07:50 Drug: D50W IVP 50 ml IVP once; (1 amp) Route: IVP; Site: right antecubital; ph 10:20 Follow up: Response: No adverse reaction; Blood sugar is elevated ph 07:55 Drug: D50W IVP 50 ml IVP once; (1 amp) Route: IVP; Site: right antecubital; ph 10:20 Follow up: Response: No adverse reaction; Blood sugar is elevated ph Disposition: 19:39 Chart complete. ms3 Disposition Summary: 12/31/24 10:14 Discharge Ordered Notes: Location: Home ms3 Condition: Stable ms3 Diagnosis - Hypoglycemia, unspecified ms3 - Essential (primary) hypertension ms3 Followup: ms3 - With: Grady Pollard DO - When: 2 - 3 days - Reason: Recheck today's complaints Discharge Instructions: - Discharge Summary Sheet ms3 - Hypoglycemia ms3 Forms: - Medication Reconciliation Form ms3 - Antibiotic Education ms3 - Prescription Opioid Use ms3 - Patient Portal Instructions ms3 - Leadership Thank You Letter ms3 Critical care time excluding procedures: 10:15 Critical care time: Bedside Care: 35 minutes. Total time: 35 minutes ms3 Signatures: Dispatcher [employer] EDMS Nidia Jerez, RN RN ph Hubert Thibodeaux DO DO ms3 Tabitha Martinez RN RN zm Corrections: (The following items were deleted from the chart) 08:21 08:21 BASIC METABOLIC PANEL+C.LAB.BRZ ordered. EDMS EDMS 08:21 08:21 CBC+H.LAB.BRZ ordered. EDMS EDMS 08:21 08:21 MAGNESIUM+C.LAB.BRZ ordered. EDMS EDMS 08:21 08:21 Troponin High Sensitivity+C.LAB.BRZ ordered. EDMS EDMS 08:22 08:22 Chest Single View+RAD.RAD.BRZ ordered. EDMS EDMS 08:22 08:22 ACETAMINOPHEN+C.LAB.BRZ ordered. EDMS EDMS 08:22 08:22 ETHANOL+C.LAB.BRZ ordered. EDMS EDMS 08:22 08:22 PROTIME (+INR)+COAG.LAB.BRZ ordered. EDMS EDMS 08:22 08:22 PTT, ACTIVATED+COAG.LAB.BRZ ordered. EDMS EDMS 08:22 08:22 SALICYLATE+C.LAB.BRZ ordered. EDMS EDMS 08:22 08:22 URINE DRUG SCREEN+UC.LAB.BRZ ordered. EDMS EDMS 08:51 08:22 HEPATIC FUNCTION+C.LAB.BRZ ordered. EDMS EDMS 09:57 08:21 EKG - Nurse/Tech ordered. ms3 zm 10:00 09:54 Accucheck ordered. ms3 zm
--- NOTE | 2024-12-31 10:15 | ER ---
Nurse's Notes [facility] Name: Hector Pal Age: 54 yrs Sex: Male : 1970 Arrival Date: 12/31/2024 Time: 07:35 Bed 2 Private MD: Diagnosis: Hypoglycemia, unspecified;Essential (primary) hypertension Presentation: 12/31 07:40 Chief complaint: EMS states: from [facility] called out for AMS, low blood sugar. Coronavirus screen: Client denies travel out of the [place] in the last 14 days. Ebola Screen: Patient denies travel to an Ebola-affected area in the 21 days before illness onset. No symptoms or risks identified at this time. 07:40 Method Of Arrival: EMS: [facility] 07:40 Initial Sepsis Screen: Does the patient meet any 2 criteria? No. Patient's initial zm sepsis screen is negative. Does the patient have a suspected source of infection? No. Patient's initial sepsis screen is negative. Risk Assessment: Do you want to hurt yourself or someone else? Patient reports no desire to harm self or others. Onset of symptoms is unknown. 08:04 Acuity: CESAR 1 zm Triage Assessment: 07:40 General: Appears distressed, uncomfortable, Behavior is unresponsive. Pain: Unable to cc6 use pain scale. Patient is unresponsive. EENT: No signs and/or symptoms were reported regarding the EENT system. Neuro: Level of Consciousness is unresponsive, Oriented to none. Cardiovascular: Capillary refill < 3 seconds Patient's skin is warm and dry. Respiratory: Airway is patent Respiratory effort is even, unlabored, Respiratory pattern is regular, symmetrical. GI: No signs and/or symptoms were reported involving the gastrointestinal system. : No signs and/or symptoms were reported regarding the genitourinary system. Derm: No signs and/or symptoms reported regarding the dermatologic system. Musculoskeletal: No signs and/or symptoms reported regarding the musculoskeletal system. Historical: - Allergies: 07:40 antibiotics; zm 07:40 PENICILLINS; zm 07:40 Vancomycin; zm 07:40 unknown antibiotic; zm - PMHx: 07:40 diabetes mellitus; Hypertensive disorder; zm - PSHx: 07:40 Amputated below knee; R shoulder; R BKA; zm - Immunization history:: Adult Immunizations unknown. - Infectious Disease History:: Denies. - Social history:: Smoking status: unknown. Screenin:12 [facility] ED Fall Risk Assessment (Adult) History of falling in the last 3 months, zm including since admission No falls in past 3 months (0 pts) Confusion or Disorientation Yes (5 pts) Intoxicated or Sedated Yes (3 pts) Impaired Gait Yes (1 pt) Mobility Assist Device Used Yes (1 pt) Altered Elimination Yes (1 pt) Score/Fall Risk Level 3 or more points = High Risk Oriented to surroundings, Maintained a safe environment, Educated pt \T\ family on fall prevention, incl call for assistance when getting out of bed, Assessed \T\ reinforced patient's understanding of fall precautions, Hourly rounding (assess needs \T\ fall precautionary measures) done, Used ambulatory aids as needed (educated on \T\ assisted with), Used gait belt as appropriate Implemented a Fall Risk Plan of Care, Remained w/in arm's length of patient and in sight while toileting, Offered frequent toileting (1:1 observation), Remained with patient while ambulating. Abuse screen: Denies threats or abuse. Denies injuries from another. Nutritional screening: No deficits noted. Tuberculosis screening: No symptoms or risk factors identified. Assessment: 07:40 Reassessment: SEE TRIAGE. cc6 07:45 Reassessment: small bag with white crystal like substance found with patient, [place] [employer] zm called, provider notified at bedside. 09:41 Reassessment: Patient appears in no apparent distress at this time. Patient and/or zm family updated on plan of care and expected duration. Pain level reassessed. Patient is alert, oriented x 3, equal unlabored respirations, skin warm/dry/pink. Patient states feeling better. Patient states symptoms have improved. 09:41 Neuro: Level of Consciousness is awake, alert, obeys commands, Oriented to person, zm place, time, situation. 09:57 Reassessment: pt refused EKG and blood sugar check. zm Vital Signs: 07:40 BP 143 / 92; Pulse 89; Resp 24; Temp 97.3; Pulse Ox 94% on R/A; zm 08:30 BP 139 / 84; Pulse 79; Resp 19; Temp 97.7; Pulse Ox 98% on R/A; Pain 0/10; zm 10:01 BP 136 / 82; Pulse 76; Resp 17; Temp 97.8; Pulse Ox 97% on R/A; Pain 0/10; zm 08:30 Pain Scale: Adult zm 10:01 Pain Scale: Adult zm Pipe Coma Score: 07:40 Eye Response: none(1). Motor Response: none(1). Verbal Response: none(1). Total: 3. cc6 10:01 Eye Response: spontaneous(4). Motor Response: obeys commands(6). Verbal Response: zm oriented(5). Total: 15. ED Course: 07:36 Patient arrived in ED. bd 07:40 Arm band placed on right wrist. zm 07:45 Patient has correct armband on for positive identification. Bed in low position. Call zm light in reach. Side rails up X2. 07:45 Client placed on continuous cardiac and pulse oximetry monitoring. NIBP monitoring zm applied. silk spreader on. Lights dimmed. Warm blanket given. Verbal reassurance given. 08:00 Hubert Thibodeaux DO is Attending Physician. ms3 08:04 Triage completed. zm 08:43 CT Head Brain wo Cont In Process Unspecified. EDMS 09:25 XRAY Chest (1 view) In Process Unspecified. EDMS 09:35 Tabitha Martinez, RN is Primary Nurse. zm 09:43 No provider procedures requiring assistance completed. zm 10:04 Provided Education on: post ER care. zm 10:04 IV discontinued, intact, bleeding controlled, No redness/swelling at site. Pressure zm dressing applied. 10:13 Grady Pollard DO is Referral Physician. ms3 Administered Medications: 07:50 Drug: D50W IVP 50 ml IVP once; (1 amp) Route: IVP; Site: right antecubital; ph 10:20 Follow up: Response: No adverse reaction; Blood sugar is elevated ph 07:55 Drug: D50W IVP 50 ml IVP once; (1 amp) Route: IVP; Site: right antecubital; ph 10:20 Follow up: Response: No adverse reaction; Blood sugar is elevated ph Medication: 09:13 VIS not applicable for this client. zm Outcome: 10:14 Discharge ordered by MD. ms3 10:16 Discharged to home ambulatory, zm 10:16 Condition: stable 10:16 Discharge instructions given to patient, Instructed on discharge instructions, follow up and referral plans. safety practices, Demonstrated understanding of instructions, follow-up care, 10:21 Patient left the ED. ph Signatures: Dispatcher [employer] EDMS Mary Dean Patricia, RN RN Hubert Thibodeaux DO DO ms3 Tabitha Martinez RN RN Reena Blevins RN RN cc6 Corrections: (The following items were deleted from the chart) 08:57 08:56 GCS: 3, cc6 cc6 09:42 09:41 Reassessment: Patient appears in no apparent distress at this time. Patient zm and/or family updated on plan of care and expected duration. Pain level reassessed. Patient is alert, oriented x 3, equal unlabored respirations, skin warm/dry/pink. Patient states feeling better. Patient states symptoms have improved. 10:01 09:57 Reassessment: pt refused EKG [facility]
[2024-12-31 12:50] VITALS: BP 136/82; TEMP 97.8; O2SAT 97
== END 2024-12-31 10:21 | disposition home or self-care (01) ==
LOC: ER 07:35
DX: E11.649 Type 2 diabetes mellitus with hypoglycemia without coma (principal); I10 Essential (primary) hypertension
CPT/HCPCS: 36415; 70450; 71045; 80048; 80076; 80143; 80179; 82077; 82947; 83735; 84484; 85025; 85610; 85730; 96374; 99285